=== PATIENT | female | born 1990 | race African-American/Black ===

== ENCOUNTER 2017-01-02 13:53 | Emergency (ER) | payer OTHER ==
[~2017-01-02] VITALS: Ht 152.4 cm; Wt 60.8 kg
--- NOTE | 2017-01-02 14:33 | ED GI/GU/ABDOMINAL COMPLAINT ---
History of Present Illness General Chief Complaint: Nausea, Vomiting, Diarrhea Stated Complaint: SIB DR. DAVALOS +N/V-17 WEEKS Source: patient, old records Exam Limitations: no limitations Vital Signs & Intake/Output Vital Signs & Intake/Output Vital Signs Date Time Temp Pulse Resp B/P Pulse O2 O2 Flow FiO2 Ox Delivery Rate 01/02 2038 102/55 01/02 2023 98.0 89 16 98/51 98 Room Air 01/02 1651 97.5 76 20 103/56 98 Room Air 01/02 1407 97.6 91 18 116/71 98 Room Air ED Intake and Output 01/03 0000 01/02 1200 Intake Total 1100 Output Total Balance 1100 Intake, IV 1100 Patient 134 lb Weight Allergies Coded Allergies: diphenhydramine (From BENADRYL) (Intermediate, RASH 01/02/17) Reconcile Medications Metoclopramide HCl (Reglan) 10 MG TABLET 1 TAB PO TID PRN nausea Ondansetron (Zofran Odt) 4 MG TAB.RAPDIS 1 TAB SL TID PRN nausea Vit No.130/Iron/FA ( Tablet) 27 MG IRON-800 MCG TABLET 1 TAB PO DAILY (Reported) Triage Note: C/O PESISTANT VOMITING X WEEKS, WITH HEADACHE. STATES SHE HAD A UTI WAS GIVEN MACROBID AND REGLAN 2 WEEKS AGO. PT IS 17 WEEKS . SENT BY DR. CORRAL Triage Nurses Notes Reviewed? yes ? y Is pt currently ? No HPI: Patient is a 26 year old female , approximately 17 weeks presents complaining of nausea and vomiting. Vomiting onset on Wednesday, increasing number of episodes throughout the week. 6-7 episodes over the past 24 hours. 1 episode of urinary incontinence while vomiting Patient was seen at [facility] 2 weeks ago for similar and received multiple liters of IV fluids and discharged home. Taking Reglan and using C-Bands with no improvement. Not able to tolerated food or fluids over the past 24 hours. Mild lower abdominal cramping and decreased movement of baby over the past 24 hours. Associated headache. Denies vaginal bleeding, fevers. [facility]'s care at [facility] [place]. (FREDDIE WYLIE,EMY) Past History Travel History Traveled to [place] past 21 day No Medical History Any Pertinent Medical History? 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 No (EMY MENDEZ) Review of Systems Review of Systems Constitutional: Denies: chills, fever. EENTM: Reports: no symptoms. Respiratory: Denies: cough, short of breath. Cardiovascular: Denies: chest pain. GI: Reports: see HPI. Genitourinary: Reports: see HPI. Musculoskeletal: Reports: no symptoms. Skin: Reports: no symptoms. Neurological/Psychological: Reports: no symptoms. Hematologic/Endocrine: Reports: no symptoms. (EMY MENDEZ) Physical Exam Physical Exam General Appearance: well developed/nourished, alert, awake Head: atraumatic, normal appearance Eyes: Bilateral: normal appearance, PERRL, EOMI. Ears, Nose, Throat, Mouth: hearing grossly normal, moist mucous membrane Neck: normal inspection, supple, full range of motion Respiratory: normal breath sounds, chest non-tender, no respiratory distress, lungs clear Cardiovascular: regular rate/rhythm Gastrointestinal: normal bowel sounds, soft, non-tender Back: normal inspection, normal range of motion Extremities: normal range of motion Neurologic/Psych: no motor/sensory deficits, awake, alert, oriented x 3, normal gait, normal mood/affect Skin: intact, normal color, warm/dry Core Measures ACS in differential dx? No Severe Sepsis Present: No Septic Shock Present: No (EMY MENDEZ) Progress Differential Diagnosis: hyperemesis gravidarum, dehydration, electrolyte abnormality, threatened miscarriage, urinary tract infection Plan of Care: Orders Procedure Date/time Status COMPREHENSIVE METABOLIC PANEL 01/02 1454 Complete CBC WITHOUT DIFFERENTIAL 01/02 1454 Complete URINALYSIS 01/02 1413 Complete Laboratory Tests 01/02/17 1518: Anion Gap 12, Estimated GFR > 60, BUN/Creatinine Ratio 16.0, Glucose 92, Calcium 10.1, Total Bilirubin 0.4, AST 19, ALT 36, Alkaline Phosphatase 101, Total Protein 8.2, Albumin 4.2, Globulin 4.0, Albumin/Globulin Ratio 1.1, CBC w Diff NO MAN DIFF REQ, RBC 5.32, MCV 80.7 L, MCH 26.4 L, RDW 14.1, MPV 8.2, Gran % 58.0, Lymphocytes % 32.0, Monocytes % 9.0, Eosinophils % 0.6, Basophils % 0.4, Absolute Granulocytes 4.2, Absolute Lymphocytes 2.3, Absolute Monocytes 0.7 H, Absolute Eosinophils 0, Absolute Basophils 0, PUBS MCHC 32.7 L, Urine Color YEL , Urine Clarity CLEAR, Urine pH 6.0, Ur Specific [place] 1.025, Urine Protein NEG, Urine Ketones TRACE H, Urine Nitrite NEG, Urine Bilirubin NEG, Urine Urobilinogen 0.2, Ur Leukocyte Esterase NEG, Ur Microscopic EXAM NOT REQUIRED, Urine Hemoglobin NEG, Urine Glucose 500 H 1520: Discussed with Dr. Finney. 01/02/2017 4:37:20 PM: Patient reports mild improvement in nausea from Reglan. Discussed results of labs and urinalysis with patient. Zofran ordered. Will continue to monitor. Patient attempted to take ice chips, became more nauseous. Additional Reglan ordered. 01/02/2017 9:09:10 PM: Patient feeling improved, ready to go home. Appears stable for discharge with follow-up with her skating carhop. (EMY MENDEZ) Initial ED EKG: none (EMY MENDEZ) Departure Departure Time of Disposition: 2053 Disposition: HOME OR SELF CARE Condition: Stable Clinical Impression Primary Impression: Hyperemesis gravidarum Referrals: SHAYNA HERRON,EMY REYES MD,MASSIMO (PCP/Family) Additional Instructions: Follow-up with your skating carhop this upcoming week for further evaluation, call Wednesday for appointment. Clear liquid diet for the next 12 hours then slowly advance your diet as tolerated. Return to the emergency department if vaginal bleeding, unable to stay hydrated, abdominal pain, fevers, or worsening of symptoms. Departure Forms: Customer Survey General Discharge Information Prescriptions: Current Visit Scripts Metoclopramide HCl (Reglan) 1 TAB PO TID PRN nausea #15 TAB Ondansetron (Zofran Odt) 1 TAB SL TID PRN nausea #10 TAB (EMY MENDEZ) PA/ADMINISTRATIVE PERSONAL ASSISTANT Co-Sign Statement Statement: ED Attending supervision documentation- [] I saw and evaluated the patient. I have also reviewed all the pertinent lab results and diagnostic results. I agree with the findings and the plan of care as documented in the PA's/ADMINISTRATIVE PERSONAL ASSISTANT's documentation. [X] I have reviewed the ED Record and agree with the PA's/ADMINISTRATIVE PERSONAL ASSISTANT's documentation. [] Additions or exceptions (if any) to the PAs/ADMINISTRATIVE PERSONAL ASSISTANT's note and plan are summarized below: [] (GARRET HERRON,ISIDORO Connell)
[2017-01-02 16:03] LABS: ABSOLUTE BASOPHIL COUNT 0 /CUMM (0.0-0.2); ABSOLUTE EOSINOPHIL COUNT 0 /CUMM (0.0-0.7); ABSOLUTE LYMPH COUNT 2.3 /CUMM (1.2-3.4); ABSOLUTE MONOCYTE COUNT 0.7 /CUMM (0.10-0.60); EOSINOPHIL % 0.6 % (0-5); MEAN CORPUSCULAR HGB 26.4 PG (27.0-31.0); MEAN PLATELET VOLUME 8.2 FL (7.4-10.4); WHITE BLOOD CELL COUNT 7.3 /CUMM (4.8-10.8)
[2017-01-02 16:05] LABS: ABSOLUTE GRANULOCYTE CT 4.2 /CUMM (1.4-6.5); BASOPHIL % 0.4 % (0.0-2.0); MEAN CORPUSCULAR HGB CONC 32.7 G/DL (33.0-37.0); MEAN CORPUSCULAR VOLUME 80.7 FL (81.0-99.0); PLATELET COUNT 387 /CUMM (130-400); RBC DISTRIBUTION WIDTH 14.1 % (11.5-14.5); RED BLOOD CELL CT 5.32 /CUMM (4.20-5.40)
[2017-01-02] MEDS ORDERED: PRENATAL TABLE1 EAC2 PO (16:40)
[2017-01-02 20:38] VITALS: BP 102/55
[2017-01-02] MEDS ORDERED: ZOFRAN ODT4 M1 SL (20:56)
[2017-01-02] MEDS ORDERED: REGLAN10 M1 PO (20:56)
== END 2017-01-02 21:22 ==
LOC: ERH 13:53
PROVIDERS: Physician Assistant
DX: O21.0 Mild hyperemesis gravidarum (principal); Z3A.17 17 weeks gestation of pregnancy
CPT/HCPCS: 81003; 96361; 96365; 96375; J2405; J2765; J7042